=== PATIENT | female | born 1980 | race Caucasian/White ===

== ENCOUNTER 2017-07-28 15:23 | Observation (INO) | payer MEDICAID ==
[~2017-07-28] VITALS: Ht 152.4 cm; Wt 73.0 kg
[2017-07-28] MEDS ORDERED: PNV1TABL76 MT (15:52)
[2017-07-28] MEDS ORDERED: FERR325T6 MT (15:52)
[2017-07-28] MEDS ORDERED: LACTATED RINGERS 1,000 ML IV SCH (16:45)
[2017-07-28 17:48] LABS: CLARITY URINE CLOUDY (CLEAR); COLOR URINE YELLOW (YELLOW); KETONES URINE NEGATIVE (NEGATIVE); LEUKOCYTE ESTERASE URINE 1+ (NEGATIVE); NITRITE URINE NEGATIVE (NEGATIVE); OCCULT BLOOD URINE NEGATIVE (NEGATIVE); PH URINE 6.5 (4.5-8.0); PROTEIN URINE NEGATIVE (NEGATIVE); SPECIFIC GRAVITY URINE 1.007 (1.005-1.030); UROBILINOGEN URINE 0.2 E.U./dL (0.2-1.0)
[2017-07-28] MEDS ORDERED: CEFAZOLIN 2,000 MG in DEXT 5% WATER 100 ML IV NR (18:30)
== END 2017-07-28 19:46 | disposition home or self-care (01) ==
LOC: L&D 15:23
PROVIDERS: ADMIT Obstetrics & Gynecology; ATTEND Obstetrics & Gynecology
DX: O23.43 Unspecified infection of urinary tract in pregnancy, third trimester (principal); Z3A.33 33 weeks gestation of pregnancy
CPT/HCPCS: 76805; 76818; 81003; 82731; 96361; 96365; 99281; G0378; J0690; J7120; 96360; J7060